=== PATIENT | male | born 1990 | race Caucasian/White ===

== ENCOUNTER 2017-10-28 08:51 | Emergency (ER) | payer OTHER ==
[~2017-10-28] VITALS: Ht 177.8 cm; Wt 64.9 kg
[2017-10-28 09:02] VITALS: BP 157/91
--- NOTE | 2017-10-28 09:05 | NUR ---
PT AMBULATES TO BED 3, REPORT GIVEN TO MARY KAY PRIETO
--- NOTE | 2017-10-28 09:08 | NUR ---
27 yo m bib mother w/ c/o anxiety attack. Pt has hx of psych disorders/anxiety disorder. Has prescription from PCP for 0.25 mg xanax, but states he did not notice that it helped. Pt went to urgent care for anxiety on saturday and received 2mg injection of lorazepam and stated it helped him for an extended period of time. At this time pt is trying to get a referral to a psychiatrist, but is being given "the run around" at this time. Pt mother on the phone at this time attempting to get referal. Pt denies n/v/d/fever/chills/pain/palpitations. aaox4. gcs 15. cms intact. rr even and unlabored. lungs bilaterally clear. ER MD Hunter notified. pt needs met. safety precautions in place. will continue to monitor.
[2017-10-28 10:05] VITALS: BP 147/89
== END 2017-10-28 10:05 | disposition home or self-care (01) ==
LOC: MED 08:51
DX: F41.9 Anxiety disorder, unspecified (principal); G47.00 Insomnia, unspecified; F17.210 Nicotine dependence, cigarettes, uncomplicated
CPT/HCPCS: 99284